=== PATIENT | female | born 1995 | race Caucasian/White ===

== ENCOUNTER 2021-02-04 08:28 | Outpatient (REF) | payer OTHER, SELFPAY ==
--- NOTE | ~2021-02-04 | XR_ITS ---
EXAMINATION: XR LUMBOSACRAL SPINE CLINICAL INFORMATION: Low back pain. COMPARISON: None TECHNIQUE: Three views of the lumbosacral spine. FINDINGS: The vertebral bodies and posterior elements are normal. The disc spaces are preserved and the vertebral alignment is normal. The paraspinal soft tissues are normal. XR/XR lumbar spine 2-3V IMPRESSION: Unremarkable examination.
[2021-02-04 11:23] LABS: Hemoglobin 13.8 g/dl (12.0-16.0); Mean Corpuscular HGB Conc 32.9 g/dl (31.0-35.0); Mean Corpuscular Hemoglobin 29.7 pg (27.0-33.0); Mean Corpuscular Volume 90.3 fL (80-98); Mean Platelet Volume 9.8 fL (9.4-12.3); Platelet Count 297 X10*3/uL (160-400); Red Blood Count 4.65 X10*6/uL (4.20-5.50)
[2021-02-04 11:52] LABS: Glucose Urine UA NEG (NEG); Leukocyte Esterase Urine NEG (NEG); Nitrite Urine NEG (NEG); PH 6.5 (5.0-8.0); Specific Gravity - Urine 1.025 (1.005-1.025); Urine Blood NEG (NEG); Urine Ketones NEG (NEG); Urine Protein NEG (NEG-TRACE)
[2021-02-04 11:57] LABS: Appearance Urine HAZY; Color Urine YELLOW
[2021-02-04 12:00] LABS: Alanine Aminotransferase 12 U/L (0-31); Albumin Level 4.2 g/dL (3.5-5.0); Alkaline Phosphatase 45 U/L (39-117); Anion Gap 12 (12-20); Aspartate Amino Transferase 16 U/L (5-31); Bilirubin Total 0.6 mg/dL (0.0-1.0); Blood Urea Nitrogen 19 mg/dL (9-16); Calcium 9.1 mg/dL (8.4-10.2); Carbon Dioxide 29 mmol/L (22-29); Chloride 105 mmol/L (96-108); Estimated Glomerular Filt Rate > 60; Glucose Fasting 88 mg/dL (60-99); Potassium 4.3 mmol/L (3.3-5.1); Sodium 142 mmol/L (135-145); Total Protein 7.1 g/dL (6.5-8.0)
[2021-02-04 12:06] LABS: TSH reflex Free T4 1.05 uIU/mL (0.32-4.0)
== END 2021-02-04 08:29 | disposition home or self-care (01) ==
LOC: HO.HMGCLDS 08:28
PROVIDERS: PCP Physician Assistant; Visit Provider Physician Assistant
DX: M54.5 Low back pain (principal); I10 Essential (primary) hypertension; R30.0 Dysuria; Z13.1 Encounter for screening for diabetes mellitus; Z13.29 Encounter for screening for other suspected endocrine disorder
CPT/HCPCS: 36415; 72100; 80053; 81003; 84443; 85027

== ENCOUNTER 2021-03-12 13:38 | Outpatient (REF) | payer OTHER, SELFPAY ==
--- NOTE | ~2021-03-12 | MR_ITS ---
EXAMINATION: MR BRAIN WITHOUT AND WITH CONTRAST CLINICAL INFORMATION: Benign neoplasm of the pituitary gland. COMPARISON: No relevant prior imaging. TECHNIQUE: Multiplanar MR imaging of the brain was performed without and with contrast. A total of 2.5 mL Gadavist was utilized for this examination. FINDINGS: Dedicated imaging through the sella turcica reveals somewhat heterogeneous enhancement of the pituitary gland with a questionable 0.3 cm focus of relative hypoenhancement along left lateral aspect of the anterior lobe of the pituitary gland. There is subtle rightward displacement of the pituitary stalk. The overall height of pituitary tissue remains within limits of normal variation measuring 0.6 cm in height. No suprasellar mass effect or chiasmatic compression. Cavernous sinuses enhance symmetrically. Cavernous internal carotid artery flow voids are maintained. Postcontrast images reveal no abnormal mass or enhancement within the intracranial compartment. No intracranial mass effect or midline shift. Lateral and third ventricles are normal. No hydrocephalus. Midline structures including the cervicomedullary junction are normal. No acute bone marrow signal changes. There is no mastoid middle ear effusion. No active paranasal sinus disease. MR/MR head/brain wo/w con IMPRESSION: There is heterogeneous enhancement of the anterior lobe of the pituitary gland. Questionable focus of relative hypoenhancement along the left lateral aspect of the anterior lobe of the pituitary gland. It is difficult to distinguish whether this finding represents a pituitary microadenoma or artifact. Otherwise unremarkable examination.
== END 2021-03-12 13:39 | disposition home or self-care (01) ==
LOC: HO.MRI 13:38
PROVIDERS: Visit Provider Physician Assistant
DX: D35.2 Benign neoplasm of pituitary gland (principal)
CPT/HCPCS: 70553; A9585

== ENCOUNTER 2021-10-31 15:28 | Outpatient (REF) | payer OTHER, SELFPAY ==
[2021-10-31 19:41] LABS: Influenza A PCR NEGATIVE (Negative); Influenza B PCR NEGATIVE (Negative); Resp Syncy Virus RNA Qual PCR NEGATIVE (Negative); SARS COV2 PCR INHOUSE NEGATIVE (Negative)
== END 2021-10-31 15:29 | disposition home or self-care (01) ==
LOC: HO.LAB 15:28
PROVIDERS: Visit Provider Family Medicine
DX: Z20.822 Contact with and (suspected) exposure to COVID-19 (principal); B34.9 Viral infection, unspecified
CPT/HCPCS: 0241U; 36415

== ENCOUNTER 2022-02-27 09:02 | Outpatient (REF) | payer OTHER, SELFPAY ==
[2022-02-27 11:33] LABS: Hematocrit 40.5 % (37.0-47.0); Hemoglobin 12.9 g/dl (12.0-16.0); Mean Corpuscular HGB Conc 31.9 g/dl (31.0-35.0); Mean Corpuscular Hemoglobin 26.9 pg (27.0-33.0); Mean Corpuscular Volume 84.6 fL (80.0-98.0); Mean Platelet Volume 9.7 fL (9.4-12.3); Platelet Count 305 X10*3/uL (160-400); Red Blood Count 4.79 X10*6/uL (4.20-5.50); Red Cell Distribution Width 13.1 % (11.0-16.0); White Blood Count 6.4 X10*3/uL (4.8-10.8)
[2022-02-27 11:58] LABS: Estimated Average Glucose 91 mg/dL; Hemoglobin A1c % 4.8 %
[2022-02-27 12:08] LABS: Alanine Aminotransferase 14 U/L (0-31); Albumin Level 4.2 g/dL (3.5-5.0); Alkaline Phosphatase 56 U/L (39-117); Anion Gap 12 (12-20); Aspartate Amino Transferase 16 U/L (5-31); Bilirubin Total 0.4 mg/dL (0.0-1.0); Blood Urea Nitrogen 14 mg/dL (9-16); Calcium 9.2 mg/dL (8.4-10.2); Carbon Dioxide 26 mmol/L (22-29); Chloride 103 mmol/L (96-108); Estimated Glomerular Filt Rate > 60; Glucose Fasting 75 mg/dL (60-99); Potassium 4.1 mmol/L (3.3-5.1); Sodium 137 mmol/L (135-145); Total Protein 7.2 g/dL (6.5-8.0)
[2022-02-27 12:17] LABS: TSH reflex Free T4 1.59 uIU/mL (0.32-4.0)
== END 2022-02-27 09:03 | disposition home or self-care (01) ==
LOC: HO.HMGCLDS 09:02
PROVIDERS: PCP Physician Assistant; Visit Provider Physician Assistant
DX: Z13.1 Encounter for screening for diabetes mellitus (principal); Z13.29 Encounter for screening for other suspected endocrine disorder
CPT/HCPCS: 36415; 80053; 83036; 84443; 85027

== ENCOUNTER 2022-03-24 07:21 | Outpatient (REF) | payer OTHER, SELFPAY ==
--- NOTE | ~2022-03-24 | MR_ITS ---
EXAMINATION: MR BRAIN WITHOUT AND WITH CONTRAST CLINICAL INFORMATION: 26-year-old with benign neoplasm of pituitary gland followup. COMPARISON: 03/12/2021 MRI. TECHNIQUE: Multiplanar, multisequence MRI of the brain/sella was obtained before and after the intravenous administration of 3 mL Gadavist. FINDINGS: Dedicated views of the sella turcica again demonstrate a mild degree of heterogeneous enhancement of the adenohypophysis which is similar in appearance to the previous exam without a discrete focal lesion. The previously noted 0.3 cm focus of relative hypoenhancement along the left lateral aspect of the gland is faintly visualized and appears stable. The infundibulum is located slightly to the right of midline but is not thickened and enhances normally. Normal appearance to the posterior pituitary bright spot. Maximum height of the gland is located on the right, measuring 0.6 cm which is stable. No suprasellar or juxtasellar mass lesions are identified. The cavernous sinuses enhance normally and there are normal signal voids in the adjacent carotid siphons. The prechiasmatic optic nerves, optic chiasm and optic tracts appear uncompromised and unchanged. No focal reduced diffusion is seen to suggest acute or subacute cerebral ischemia. The remainder of the brain is normal in morphology and signal intensity. No intracranial mass lesions or abnormal enhancement are seen throughout the remainder of the brain and there is no extra-axial fluid collection, space-occupying process or mass effect. Santana-white matter interface is preserved. The ventricular system and subarachnoid spaces are within normal limits without hydrocephalus stable in appearance. Normal signal voids are seen in the visualized major intracranial vessels. Minor mucosal thickening in the ethmoid complex with nasal septal deviation to the right is stable. Osseous marrow signal intensity appears within normal limits. MR/MR head/brain wo/w con IMPRESSION: 1. Somewhat heterogeneous enhancement of the anterior lobe of the pituitary gland again noted with a poorly marginated 3 mm focus of hypoenhancement on the left side of the gland stable in appearance from previous exam with asymmetry of gland height unchanged in appearance. Still difficult to exclude a tiny microadenoma versus artifact related to heterogeneous enhancement. 2. Otherwise normal exam.
== END 2022-03-24 07:22 | disposition home or self-care (01) ==
LOC: HO.MRI 07:21
PROVIDERS: Visit Provider Physician Assistant
DX: D35.2 Benign neoplasm of pituitary gland (principal)
CPT/HCPCS: 70553; A9585

== ENCOUNTER 2022-10-16 13:49 | Outpatient (REF) | payer OTHER, SELFPAY ==
[2022-10-16 14:41] LABS: Carbon Monoxide Refer to POC result
[2022-10-19 10:00] LABS: Carbon Monoxide POC 1.1 %
== END 2022-10-16 13:50 | disposition home or self-care (01) ==
LOC: HO.LAB 13:49
PROVIDERS: PCP Physician Assistant; Visit Provider Physician Assistant
DX: Z77.29 Contact with and (suspected) exposure to other hazardous substances (principal)
CPT/HCPCS: 36415; 82375

== ENCOUNTER 2023-03-18 08:26 | Outpatient (REF) | payer OTHER, SELFPAY ==
[2023-03-18 08:32] LABS: MANUAL DIFF FLAG NO
[2023-03-18 09:26] LABS: Basophils Absolute Auto 0.1 X10*3/uL (0.0-0.2); Basophils Percent Auto 1.2 % (0-2); Eosinophils Absolute Auto 0.2 X10*3/uL (0.0-0.4); Eosinophils Percent Auto 2.6 % (0-4); Hematocrit 44.8 % (37.0-47.0); Hemoglobin 14.7 g/dl (12.0-16.0); Lymphocytes Absolute Auto 2.2 X10*3/uL (1.2-4.9); Lymphocytes Percent Auto 38.8 % (20-40); Mean Corpuscular HGB Conc 32.8 g/dl (31.0-35.0); Mean Corpuscular Hemoglobin 28.7 pg (27.0-33.0); Mean Corpuscular Volume 87.5 fL (80.0-98.0); Mean Platelet Volume 9.8 fL (9.4-12.3); Monocytes Absolute Auto 0.5 X10*3/uL (0.1-1.2); Monocytes Percent Auto 8.2 % (2-11); Neutrophils Absolute Auto 2.8 x10*3/uL (2.0-8.3); Neutrophils Percent Auto 49.2 % (45-73); Platelet Count 344 X10*3/uL (160-400); Red Blood Count 5.12 X10*6/uL (4.20-5.50); Red Cell Distribution Width 12.2 % (11.0-16.0); White Blood Count 5.8 X10*3/uL (4.8-10.8)
[2023-03-18 10:06] LABS: Alanine Aminotransferase 16 U/L (0-31); Albumin Level 4.1 g/dL (3.5-5.0); Alkaline Phosphatase 51 U/L (39-117); Anion Gap 13 (12-20); Aspartate Amino Transferase 21 U/L (5-31); Bilirubin Total 0.4 mg/dL (0.0-1.0); Blood Urea Nitrogen 17 mg/dL (9-16); Calcium 9.1 mg/dL (8.4-10.2); Carbon Dioxide 25 mmol/L (22-29); Chloride 107 mmol/L (96-108); Creatinine Clr Calc Pharmacy 93.2; Estimated Glomerular Filt Rate > 60; Glucose Random 68 mg/dL (60-115); Potassium 4.4 mmol/L (3.3-5.1); Sodium 141 mmol/L (135-145); Total Protein 7.2 g/dL (6.5-8.0)
== END 2023-03-18 08:27 | disposition home or self-care (01) ==
LOC: HO.LNP 08:26
PROVIDERS: Visit Provider Nurse Practitioner Family
DX: D35.2 Benign neoplasm of pituitary gland (principal); Z13.29 Encounter for screening for other suspected endocrine disorder; Z13.1 Encounter for screening for diabetes mellitus; Z13.0 Encounter for screening for diseases of the blood and blood-forming organs and certain disorders involving the immune mechanism
CPT/HCPCS: 36415; 80053; 84443; 85025

== ENCOUNTER 2023-05-27 15:44 | Outpatient (REF) | payer OTHER, SELFPAY | END 2023-05-27 15:45 | disposition home or self-care (01) | LOC: HO.MRI 15:44 | PROVIDERS: PCP Physician Assistant; Visit Provider Nurse Practitioner Family | DX: D35.2 Benign neoplasm of pituitary gland (principal) | CPT/HCPCS: 70553 ==

== ENCOUNTER 2024-03-21 08:50 | Outpatient (AMB) | payer OTHER, SELFPAY ==
[2024-03-21 09:13] VITALS: BP 104/62; PULSE 63; O2SAT 99; BMI 25.2
--- NOTE | 2024-03-21 09:13 | A.OFFPC_ITS ---
Vital Signs 03/21/24 09:13 Height 5 ft 2 in Weight 138 lb BMI 25.2 BP 104/62 Blood Pressure Location Lt brachial Position Sitting Pulse 63 Pulse Source Pulse Oximeter Pulse Oximetry (%) 99 Oxygen Delivery Method Room Air Intake Visit Reasons: Annual Exam Allergies No Known Allergies Allergy (Verified 03/21/24 09:25) Medication List - Last Reconciled 03/21/24 by Francis Mcdaniel PA-C betamethasone dipropionate 0.05% 1 appl topical DAILY PRN clindamycin phosphate 1% topical clindamycin-benzoyl peroxide 1.2 %(1 % base) -5 % topical QAM hydroxyzine HCl 10 mg PO BEDTIME norgestimate-ethinyl estradiol 0.18/0.215/0.25 mg-35 mcg (28) 1 tab PO DAILY olopatadine 0.2% (Pataday Once Daily Relief) 1 drp ophthalmic (eye) DAILY 15 days sertraline (Zoloft) 50 mg PO DAILY 90 days sertraline 25 mg PO DAILY Tobacco use date assessed: 03/21/24 Dental Screening Dental Screen Date: 03/21/24 Did you have a dental visit in the last 12 months?: Yes Did you have a dental problem in the last 6 months where you did not have access to dental care?: No Was dental information given to patient?: Patient has dentist HPI Annual Exam HPI Details Patient is a 28-year-old female here today for routine annual physical. Patient has a past medical history significant for a pituitary Adenoma, generalized anxiety disorder. .. Pituitary microadenoma: Has been followed with annual brain MRIs though micro adenoma has been stable. She is due for an eye exam by an hog slaughterer. . Generalized anxiety disorder: Has started sertraline 75 mg with good effect on reducing her anxiety. She is now in a better place in life with her new job and in her relationships. She has gained weight which we attribute to her mental health medication. She will try to wean down her dose over the next few months. .. HUMAN RESOURCES BENEFITS COORDINATOR: Does see a HUMAN RESOURCES BENEFITS COORDINATOR at [facility]- Gets PAPs Vaccines: Up to date with flu and COVID., up-to-date with tetanus vaccine Laboratory Tests 02/27/22 02/27/22 09:26 09:26 RBC 4.79 Hgb 12.9 Creatinine 0.79 Alkaline Phosphata se 56 D TSH 1.59 PFSH Family History Father Epilepsia Mother Hip dysplasia Brother Mental health disorder Sister Mental health disorder Paternal Grandmother Mental health disorder Paternal Grandfather Mental health disorder Social History (Updated 03/21/24 @ 09:29 by Francis Mcdaniel PA-C) Housing: House Alcohol intake: current Alcohol intake frequency: holidays/special occasions only Patient Tobacco Use Status: Never used Tobacco e-Cigarette/Vaping Use: Never Used Second Hand Smoke Exposure: No service: No Current occupational status: employed Current occupation: Nurse [employer] Current occupational exposures/hazards: No Cognitive needs: No Hearing needs: No Vision needs: Yes Questionnaire PHQ-9 Over the last 2 weeks, how often have you been bothered by any of the following problems? 1. Little interest or pleasure in doing things: not at all 2. Feeling down, depressed, or hopeless: not at all 3. Trouble falling or staying asleep, or sleeping too much: not at all 4. Feeling tired or having little energy: not at all 5. Poor appetite or overeating: not at all 6. Feeling bad about yourself - or that you are a failure or have let yourself or your family down: not at all 7. Trouble concentrating on things, such as reading the newspaper or watching television: not at all 8. Moving or speaking so slowly that other people could have noticed. Or the opposite - being so fidgety or restless that you have been moving around a lot more than usual: not at all 9. Thoughts that you would be better off or of hurting yourself in some way: not at all Total score: 0 Depression Screening Interpretation: Negative Depression Screening Done: Yes 58238 - PHQ-9 Billing: Yes Source: Developed by Drs. Luke Ann, Minerva Aaron, Colby Felipe and colleagues, with an educational sandy from [employer]. Thrive Questionnaire Date Thrive assessed: 03/21/24 I am a: Patient What is your living situation today?: I have a steady place to live Within the past 12 months, did the food you bought not last and you didn't have the money to get more?: Never true Within the past 12 months, did you worry whether your food would run out before you got money to buy more?: Never true Do you have trouble paying for medicines?: No Do you have trouble getting transportation to medical appointments?: No Do you have trouble paying your heating and electricity bill?: No Do you have trouble taking care of your child, family member or friend?: No Do you have trouble with day-to-day activities such as bathing, preparing meals, shopping, managing finances, etc.?: No Are you currently unemployed and looking for a job?: No Are you interested in more education?: No Currently or been in a relationship where the following occur: no concerns reported THRIVE Score: 0 AUDIT C Alcohol Use Questionnaire (AUDIT-C) 1. How often do you have a drink containing alcohol?: 2-4 times a month 2. How many drinks containing alcohol do you have on a typical day when you are drinking?: 1 or 2 3. How often do you have six or more drinks on one occasion?: Never Total Score: 2 ELAINA-7 AMB Questionnaire ELAINA-7 Date ELAINA - 7 assessed: 03/21/24 Feeling nervous, anxious, or on edge: 1 = Several days Not being able to stop or control worryin = Several days Worrying too much about different things: 1 = Several days Trouble relaxin = Several days Being so restless that it is hard to sit still: 1 = Several days Becoming easily annoyed or irritable: 1 = Several days Feeling afraid as if something awful might happen: 1 = Several days Total ELAINA-7 score (0-4 normal; 5-9 mild; 10-14 moderate; 15-21 severe): 7 Source: Developed by Drs. Luke Ann, Minerva Aaron, Colby Felipe and colleagues, with an educational sandy from [employer]. ELAINA-7 Assessment Billing ELAINA-7 Assessment Tool: ELAINA-7 Assessment 09009 Review of Systems Const Denies body aches, Denies chills, Denies excessive sweating, Denies fatigue, Denies fever(s) and Denies headache(s) Eyes Denies blurry vision ENT Denies dysphagia, Denies vertigo, Denies dizziness, Denies headache(s), Denies hearing loss and Denies tinnitus Card Denies chest pain, Denies chest pain with activity, Denies syncope, Denies irregular heart rhythm and Denies dyspnea Resp Denies chest congestion, Denies cough, Denies hemoptysis, Denies dyspnea and Denies wheezing GI Denies abdominal pain, Denies melena, Denies hematochezia, Denies coffee ground emesis, Denies dysphagia, Denies diarrhea, Denies nausea and Denies vomiting Denies urinary frequency, Denies dysuria, Denies urinary hesitancy and Denies urinary urgency Musc Denies arthralgias, Denies limited range of motion, Denies muscle cramps and Denies muscle weakness Skin/Breast Denies rash and Denies skin ulcer Neuro Denies Abnormal speech present, Denies confusion, Denies vertigo, Denies dizziness, Denies syncope, Denies headache(s), Denies memory loss and Denies seizure-like activity Psych Denies anxiety, Denies confusion, Denies depression, Denies memory loss, Denies panic attacks and Denies paranoia Endo Denies excessive sweating, Denies fatigue, Denies flushing, Denies polydipsia and Denies polyuria Aller/Immun Denies wheezing Physical exam (Primary Care) Vital Signs: Last Vital Signs Pulse 63 03/21/24 09:13 BP 104/62 03/21/24 09:13 Pulse Ox 99 03/21/24 09:13 Oxygen Delivery Method Room Air 03/21/24 09:13 BMI result Body Mass Index 25.2 Tobacco/Smoking Status: Tobacco use Status Tobacco use date assessed 03/21/24 03/21/24 09:17 Patient Tobacco Use Status Never used Tobacco 03/21/24 09:29 e-Cigarette/Vaping Use Never Used 03/21/24 09:29 PHQ-9: PHQ-9 Score PHQ-9: Total score 0 03/21/24 09:33 Depression Screening Interpretation: Negative Thrive Assessment: Date of Thrive Assessment Date Thrive assessed 03/21/24 03/21/24 09:17 Currently or been in a relationship where the following occur: no concerns reported Const General: cooperative, comfortable, no acute distress, alert and awake; No confusion Orientation/consciousness: oriented to person, oriented to place, patient oriented x3 and No confusion HENMT Head: Yes normocephalic Ears: external ears normal and TM's normal bilaterally Face and sinus: No sinus tenderness Mouth: Normal oral and palatal mucosa present and tongue normal Teeth and gingiva: dentition normal and gingiva normal Throat: Yes posterior oropharynx normal, Yes tonsils normal and Yes uvula midline Eyes Conjunctivae: conjunctivae normal Sclerae: sclerae normal Pupils: Equal, round and reactive pupils present EOM: EOMs intact bilaterally Direct Ophthalmoscopy: No no photophobia Neck Neck: Yes no lymphadenopathy, No tender and Yes no JVD Thyroid: Thyroid normal Carotids: no bruits Chest Chest palpation & inspection: no tenderness Resp Effort & Inspection: normal respiratory effort, no audible wheezes, not labored and no stridor Auscultation: no crackles, no rales, no rhonchi and no wheezes Cardio Jugular venous distension: no JVD Rate: regular rate, not bradycardic and not tachycardic Rhythm: regular rhythm Bruits: no carotid bruits Peripheral pulses: Peripheral pulses 2+ throughout GI Inspection: Yes normal to inspection, No abdominal wall ecchymosis and No visible herniation Palpation (GI): Soft to palpation, nontender, no guarding, not rigid and No hepatosplenomegaly present Auscultation: normoactive bowel sounds General: Yes no CVA tenderness Back/Spine/Pelvis Back: no CVA tenderness and No back tenderness Cervical Spine: cervical ROM normal Thoracic/Lumbar Spine: thoracic and lumbar spine normal to inspection, straight leg raise negative bilaterally, No thoraco-lumbar ROM limited and No lumbar spinal tenderness Skin Lesions: no lesions Rashes: no rashes Wounds: no wounds Neuro General: oriented to person, oriented to place, patient oriented x3, CN's II-XI intact bilaterally and No confusion Cranial nerves: Yes Equal, round and reactive pupils present and Yes Normal accommodation reflex present Cognition (Neuro): normal cognition Speech: No Abnormal speech present Gait exam (Neuro): Normal gait present Motor exam (neuro): 5/5 motor strength present throughout Extrem Right upper extremity: full ROM; no cyanosis Left upper extremity: full ROM; no cyanosis Right lower extremity: no edema Left lower extremity: no edema Psych Appearance: grossly normal Mental Status: mental status grossly normal Affect: normal affect Attitude: cooperative Thought process: Normal thought process present Assessment and Plan Assessment & Plan (1) Annual physical exam: Code(s): Z00.00 - Encounter for general adult medical examination without abnormal findings (2) Pituitary adenoma: Code(s): D35.2 - Benign neoplasm of pituitary gland Plan: Recent MRI brain showing pituitary lesion. She reports as a young child having a pituitary microadenoma. She denies any headaches, vision issues or disorientation. continue to follow on annual basis. (3) Allergic dermatitis: Code(s): L23.9 - Allergic contact dermatitis, unspecified cause Plan: Reports having an erythematous itchy rash over her chest when drinking alcohol. She is interested in seeing an knowledge engineer for allergy testing. Advised use antihistamine before drinking alcohol. (4) Screening for diabetes mellitus (DM): Code(s): Z13.1 - Encounter for screening for diabetes mellitus (5) ELAINA (generalized anxiety disorder): Code(s): F41.1 - Generalized anxiety disorder Plan: Patient's ELAINA-7 score positive today for mild anxiety. Anxiety has been it existing condition for her she is treated with Zoloft with good effect on reducing her anxiety. She is interested in reducing her dose of Zoloft and will do so slowly reducing by 25 mg every 4-6 weeks. Orders: Orders Comprehensive [place]. Panel Fast 03/21/24 Z13.1 - Encounter for screening for diabetes mellitus Patient Instructions: Goals: Controlled anxiety Barriers: Busy work and social lifestyle Coding Level of Care Code Est Pt Prev Care [id number]([id number]) Diagnoses Annual physical exam Z00.00 Pituitary adenoma D35.2 Allergic dermatitis L23.9 Screening for diabetes mellitus (DM) Z13.1 ELAINA (generalized anxiety disorder) F41.1 Additional Codes ELAINA-7 Assessment Billing - ELAINA-7 Assessment Tool: ELAINA-7 Assessment [id number] ([id number])
== END 2024-03-21 09:43 | disposition home or self-care (01) ==
PROVIDERS: Visit Provider Physician Assistant
DX: Z00.00 Encounter for general adult medical examination without abnormal findings (principal); D35.2 Benign neoplasm of pituitary gland; L23.9 Allergic contact dermatitis, unspecified cause; Z13.1 Encounter for screening for diabetes mellitus; F41.1 Generalized anxiety disorder
CPT/HCPCS: 99395

== ENCOUNTER 2024-06-08 08:32 | Outpatient (REF) | payer OTHER, SELFPAY ==
[2024-06-08 10:35] LABS: Alanine Aminotransferase 15 U/L (0-31); Albumin Level 4.2 g/dL (3.5-5.0); Alkaline Phosphatase 67 U/L (39-117); Anion Gap 9 (12-20); Aspartate Amino Transferase 17 U/L (5-31); Bilirubin Total 0.6 mg/dL (0.0-1.0); Blood Urea Nitrogen 15 mg/dL (9-16); Calcium 9.4 mg/dL (8.4-10.2); Carbon Dioxide 28 mmol/L (22-29); Chloride 106 mmol/L (96-108); Estimated Glomerular Filt Rate > 60; Glucose Fasting 79 mg/dL (60-99); Potassium 3.7 mmol/L (3.3-5.1); Sodium 139 mmol/L (135-145); Total Protein 7.4 g/dL (6.5-8.0)
== END 2024-06-08 08:33 | disposition home or self-care (01) ==
LOC: HO.HMGCLDS 08:32
PROVIDERS: PCP Physician Assistant; Visit Provider Physician Assistant
DX: Z13.1 Encounter for screening for diabetes mellitus (principal)
CPT/HCPCS: 36415; 80053

== ENCOUNTER 2025-09-04 08:16 | Outpatient (REF) | payer OTHER, SELFPAY ==
[2025-09-04 10:32] LABS: Hematocrit 39.5 % (37.0-47.0); Hemoglobin 13.1 g/dl (12.0-16.0); Mean Corpuscular HGB Conc 33.2 g/dl (31.0-35.0); Mean Corpuscular Hemoglobin 28.3 pg (27.0-33.0); Mean Corpuscular Volume 85.3 fL (80.0-98.0); NRBC Abs Auto 0.000 X10*3/uL (0.0-0.012); NRBC Pct Auto 0.0 /100WBC (0.0-0.2); Platelet Count 331 X10*3/uL (160-400); Red Blood Count 4.63 X10*6/uL (4.20-5.50); White Blood Count 8.7 X10*3/uL (4.8-10.8)
[2025-09-04 10:47] LABS: Alanine Aminotransferase 11 U/L (0-31); Albumin Level 4.2 g/dL (3.5-5.0); Alkaline Phosphatase 59 U/L (39-117); Anion Gap 12 (12-20); Aspartate Amino Transferase 19 U/L (5-31); Blood Urea Nitrogen 15 mg/dL (9-16); Calcium 9.0 mg/dL (8.4-10.2); Carbon Dioxide 27 mmol/L (22-29); Chloride 105 mmol/L (96-108); Estimated Glomerular Filt Rate > 60; Potassium 3.7 mmol/L (3.3-5.1); Sodium 140 mmol/L (135-145); Total Protein 7.2 g/dL (6.5-8.0)
== END 2025-09-04 08:17 | disposition home or self-care (01) ==
LOC: HO.HMGCLDS 08:16
PROVIDERS: PCP Physician Assistant; Visit Provider Physician Assistant
DX: D35.2 Benign neoplasm of pituitary gland (principal); Z13.1 Encounter for screening for diabetes mellitus
CPT/HCPCS: 36415; 80053; 84443; 85027

== ENCOUNTER 2025-09-05 09:16 | Outpatient (AMB) | payer OTHER, SELFPAY ==
--- NOTE | 2025-09-05 09:22 | MHC.PC.OV ---
Vital Signs 09/05/25 09:23 Height 5 ft 2 in Weight 134 lb 4 oz BMI 24.6 BP 120/72 Blood Pressure Location Lt brachial Position Sitting Pulse 78 Pulse Source Pulse Oximeter Temp 97.3 F Temp Source Temporal Artery Scan Pulse Oximetry (%) 97 Oxygen Delivery Method Room Air Intake Visit Reasons: FMLA Intake Note: Patient is here to follow up on FMLA. Voice Network Administrator Required: No Low Emission Automobile Designer: Not Required per policy Accompanied by: Self / Same As Patient Allergies No Known Allergies Allergy (Verified 09/05/25 09:33) Medication List - Last Reconciled 09/05/25 by Francis Mcdaniel PA-C betamethasone dipropionate 0.05% 1 appl topical DAILY PRN clindamycin phosphate 1% topical clindamycin-benzoyl peroxide 1.2 %(1 % base) -5 % topical QAM hydroxyzine HCl 10 mg PO BEDTIME norgestimate-ethinyl estradiol 0.18/0.215/0.25 mg-0.035mg (28) 1 tab PO DAILY sumatriptan succinate take 1 tab at onset of headache; if no relief may repeat 1 tab after at least 2 hrs; max = 4 tabs/24 hr PO 30 days Tobacco use date assessed: 09/05/25 Dental Screening Dental Screen Date: 09/05/25 Did you have a dental visit in the last 12 months?: Yes Did you have a dental problem in the last 6 months where you did not have access to dental care?: No Was dental information given to patient?: Patient has dentist HPI FMLA HPI Details Patient is a 28-year-old female here today for an annual physical Today patient wants to discuss her mental health.. Patient has a past medical history significant for a pituitary Adenoma, generalized anxiety disorder. .. Pituitary microadenoma: Has been followed with annual brain MRIs though micro adenoma has been stable. She is due for an eye exam by an polyethylene bag machine operator. . Generalized anxiety disorder: Has been off of mental health medication for quite some time as she was doing well. --> She works as a labor and delivery nurse and recently experienced her first loss on August 19, involving a who required intubation and subsequently . 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 Following the incident, the patient took a week off work and was advised by her branch general manager to file for Family and Medical Leave Act (FMLA) leave, which she did from September 01 to September 10. She has been engaging in therapy sessions with both her personal therapist and a therapist provided through her workplace, [facility], which offers six free sessions Vaccine : Up-to-date with Tdap, will give flu shot work mold operator: Sees a THERAPY SITE COORDINATOR at [facility] office in his up-to-date with Pap screening. Laboratory Tests 09/04/25 08:25 RBC 4.63 Hgb 13.1 Creatinine 0.75 Fasting Glucose 82 AST 19 ALT 11 TSH 3.37 PFSH Surgical History No pertinent past surgical history Family History Father Epilepsia Mother Hip dysplasia Brother Mental health disorder Sister Mental health disorder Paternal Grandmother Mental health disorder Paternal Grandfather Mental health disorder Social History Housing: House Alcohol intake: current Alcohol intake frequency: holidays/special occasions only Patient Tobacco Use Status: Never used Tobacco e-Cigarette/Vaping Use: Never Used Second Hand Smoke Exposure: No service: No Current occupational status: employed Current occupation: Nurse [employer] Current occupational exposures/hazards: No Cognitive needs: No Hearing needs: No Vision needs: Yes Questionnaire PHQ-9 Over the last 2 weeks, how often have you been bothered by any of the following problems? 1. Little interest or pleasure in doing things: not at all 2. Feeling down, depressed, or hopeless: not at all 3. Trouble falling or staying asleep, or sleeping too much: several days 4. Feeling tired or having little energy: several days 5. Poor appetite or overeating: not at all 6. Feeling bad about yourself - or that you are a failure or have let yourself or your family down: not at all 7. Trouble concentrating on things, such as reading the newspaper or watching television: not at all 8. Moving or speaking so slowly that other people could have noticed. Or the opposite - being so fidgety or restless that you have been moving around a lot more than usual: not at all 9. Thoughts that you would be better off or of hurting yourself in some way: not at all Total score: 2 Depression Screening Interpretation: Positive Depression Screening Follow-up: Existing condition Depression Screening Done: Yes 87573 - PHQ-9 Billing: Yes Source: Developed by Drs. Luke Ann, Minerva Aaron, Colby Felipe and colleagues, with an educational sandy from [employer]. Thrive Questionnaire Date Thrive assessed: 09/05/25 I am a: Patient What is your living situation today?: I have a steady place to live Within the past 12 months, did the food you bought not last and you didn't have the money to get more?: Never true Within the past 12 months, did you worry whether your food would run out before you got money to buy more?: Never true Do you have trouble paying for medicines?: No Do you have trouble getting transportation to medical appointments?: No Do you have trouble paying your heating and electricity bill?: No Do you have trouble taking care of your child, family member or friend?: No Do you have trouble with day-to-day activities such as bathing, preparing meals, shopping, managing finances, etc.?: No Are you currently unemployed and looking for a job?: No Are you interested in more education?: No Please select the resources that you would like help with: None Currently or been in a relationship where the following occur: No concerns reported THRIVE Score: 0 AUDIT C Alcohol Use Questionnaire (AUDIT-C) 1. How often do you have a drink containing alcohol?: Monthly or less 2. How many drinks containing alcohol do you have on a typical day when you are drinking?: 1 or 2 3. How often do you have six or more drinks on one occasion?: Never Total Score: 1 ELAINA-7 AMB Questionnaire ELAINA-7 Date ELAINA - 7 assessed: 09/05/25 Feeling nervous, anxious, or on edge: 1 = Several days Not being able to stop or control worryin = Several days Worrying too much about different things: 1 = Several days Trouble relaxin = Several days Being so restless that it is hard to sit still: 0 = Not at all Becoming easily annoyed or irritable: 0 = Not at all Feeling afraid as if something awful might happen: 0 = Not at all Total ELAINA-7 score (0-4 normal; 5-9 mild; 10-14 moderate; 15-21 severe): 4 Source: Developed by Drs. Luke Ann, Minerva Aaron, Colby Felipe and colleagues, with an educational sandy from [employer]. ELAINA-7 Assessment Billing ELAINA-7 Assessment Tool: ELAINA-7 Assessment 12407 Review of Systems Const Denies excessive sweating, Denies fatigue and Denies headache(s) Eyes Denies loss of vision ENT Denies vertigo, Denies dizziness, Denies headache(s) and Denies sore throat Card Denies chest pain, Denies leg edema and Denies lightheadedness Resp Denies cough, Denies hemoptysis and Denies wheezing GI Denies abdominal pain, Denies melena, Denies constipation, Denies diarrhea and Denies vomiting Denies urinary frequency, Denies dysuria and Denies urinary urgency Musc Denies arthralgias, Denies joint swelling, Denies numbness and Denies tingling Skin/Breast Denies rash and Denies skin ulcer Neuro Denies Abnormal speech present, Denies behavioral changes, Denies vertigo, Denies dizziness, Denies headache(s), Denies loss of vision, Denies memory loss, Denies numbness and Denies tingling Psych Denies anxiety, Denies behavioral changes, Denies depression, Denies memory loss and Denies panic attacks Endo Denies excessive sweating, Denies fatigue, Denies flushing, Denies polydipsia and Denies polyuria Cesar/Lymph Denies easy bleeding and Denies easy bruising Aller/Immun Denies wheezing Physical exam (Primary Care) Vital Signs: Last Vital Signs Temp 97.3 F 09/05/25 09:23 Pulse 78 09/05/25 09:23 BP 120/72 09/05/25 09:23 Pulse Ox 97 09/05/25 09:23 Oxygen Delivery Method Room Air 09/05/25 09:23 BMI result Body Mass Index 24.6 Tobacco/Smoking Status: Tobacco use Status Tobacco use date assessed 09/05/25 09/05/25 09:26 Patient Tobacco Use Status Never used Tobacco 09/05/25 09:26 e-Cigarette/Vaping Use Never Used 09/05/25 09:26 PHQ-9: PHQ-9 Score PHQ-9: Total score 2 09/05/25 09:32 Depression Screening Interpretation: Positive Depression Screening Follow-up: Existing condition Thrive Assessment: Date of Thrive Assessment Date Thrive assessed 09/05/25 09/05/25 09:26 Currently or been in a relationship where the following occur: No concerns reported Const General: healthy appearing, no acute distress, alert and awake Nutritional Appearance: well nourished Orientation/consciousness: oriented to person, oriented to place and oriented to time HENMT Head: Yes normocephalic Ears: TM's normal bilaterally General nose exam: Normal nasal mucous membranes and turbinates present Face and sinus: No sinus tenderness Mouth: Normal oral and palatal mucosa present and tongue normal Teeth and gingiva: dentition normal and gingiva normal Throat: Yes posterior oropharynx normal, Yes tonsils normal and Yes uvula midline Eyes Conjunctivae: conjunctivae normal Sclerae: sclerae normal Pupils: Equal, round and reactive pupils present EOM: EOMs intact bilaterally Direct Ophthalmoscopy: No no photophobia Neck Neck: Yes no lymphadenopathy and Yes no JVD Thyroid: Thyroid normal Carotids: no bruits Chest Chest palpation & inspection: no tenderness Resp Effort & Inspection: normal respiratory effort and not tachypneic Auscultation: no crackles, no rales, no rhonchi and no wheezes Cardio Jugular venous distension: no JVD Rate: regular rate Rhythm: regular rhythm Heart sounds: no murmurs and normal S1 and S2 Bruits: no carotid bruits Peripheral pulses: Peripheral pulses 2+ throughout GI Inspection: Yes normal to inspection, No abdominal wall ecchymosis and No visible herniation Palpation (GI): Soft to palpation, nontender, no hepatomegaly and no splenomegaly Auscultation: normal bowel sounds General: Yes no CVA tenderness Back/Spine/Pelvis Back: no CVA tenderness and No back tenderness Cervical Spine: cervical ROM normal Thoracic/Lumbar Spine: thoracic and lumbar spine normal to inspection, straight leg raise negative bilaterally, No thoraco-lumbar ROM limited and No lumbar spinal tenderness Skin General skin exam: no rashes or lesions noted and dry skin Lesions: no lesions Rashes: no rashes Wounds: no wounds Neuro General: oriented to person, oriented to place and oriented to time Cranial nerves: Yes Equal, round and reactive pupils present Cognition (Neuro): normal cognition Speech: No Abnormal speech present Gait exam (Neuro): Normal gait present Motor exam (neuro): no tremor noted Extrem Right upper extremity: full ROM Left upper extremity: full ROM Right lower extremity: full ROM; no edema Left lower extremity: full ROM; no edema Psych Appearance: grossly normal Mental Status: mental status grossly normal Speech and movement: Normal speech and movement present Affect: normal affect Attitude: cooperative Thought process: Normal thought process present Coding Level of Care Code Est Pt Prev Care [id number]([id number]) Diagnoses Annual physical exam Z00.00 Acute stress reaction with predominately emotional disturbance F43.0 ELAINA (generalized anxiety disorder) F41.1 Additional Codes PHQ-9 - 42634 - PHQ-9 Billing: Yes ([id number]) ELAINA-7 Assessment Billing - ELAINA-7 Assessment Tool: ELAINA-7 Assessment [id number] ([id number]) Assessment & Plan Assessment & Plan (1) Annual physical exam: Code(s): Z00.00 - Encounter for general adult medical examination without abnormal findings Category: Medical Plan: As per HPI (2) Acute stress reaction with predominately emotional disturbance: Code(s): F43.0 - Acute stress reaction Category: Medical Plan: The patient is advised to continue therapy sessions with both her personal therapist and the therapist provided through her workplace to address her anxiety and stress related to the recent loss. Patient will bring in [facility] paperwork in the near future to fill out for a few days she was out from work. (3) ELAINA (generalized anxiety disorder): Code(s): F41.1 - Generalized anxiety disorder Category: Medical Plan: Patient's ELAINA-7 score 0, has a history of anxiety and depression and was on SSRI therapy in the past though is not needing any medication now. She is speaking with a mental health therapist at this time. She does use hydroxyzine on a limited time basis for sleep.
[2025-09-05 09:23] VITALS: BP 120/72; PULSE 78; TEMP 36.3; O2SAT 97; BMI 24.6
== END 2025-09-05 10:02 | disposition home or self-care (01) ==
PROVIDERS: PCP Physician Assistant; Visit Provider Physician Assistant
DX: Z00.00 Encounter for general adult medical examination without abnormal findings (principal); F43.0 Acute stress reaction; F41.1 Generalized anxiety disorder

== ENCOUNTER → 2025-09-05 09:16 | Outpatient (BNVA) | payer OTHER, SELFPAY | PROVIDERS: PCP Physician Assistant; Visit Provider Physician Assistant | DX: Z00.00 Encounter for general adult medical examination without abnormal findings (principal); F41.1 Generalized anxiety disorder; F43.0 Acute stress reaction | CPT/HCPCS: 96127 ==